=== PATIENT | female | born 1985 | race Caucasian/White ===

== ENCOUNTER 2017-04-19 22:08 | Emergency (ER) | payer MEDICAID, SELFPAY ==
[2017-04-19 22:08] VITALS: BP 126/79; PULSE 74; RESP 16; TEMP 36.9; O2SAT 100; BMI 33.8
--- NOTE | 2017-04-19 22:18 | CT_ITS ---
STUDY: CT ABDOMEN AND PELVIS WITHOUT CONTRAST REASON FOR EXAM: Female, 32 years old. Nausea vomiting and diarrhea. Right flank pain. RADIATION DOSAGE (If Supplied By Facility): CTDIvol = ( 10.84 ) mGy, DLP = ( 533.29 ) mGycm TECHNIQUE: Transaxial images were obtained from the dome of the diaphragm to the symphysis pubis without oral contrast, and without intravenous contrast. Sagittal and coronal images were reconstructed. Individualized dose optimization techniques were used for this CT. COMPARISON: None. FINDINGS: The visualized lung bases are unremarkable. The visualized portions of the heart are within normal limits. Normal liver. There are surgical clips in the gallbladder fossa consistent with a prior cholecystectomy. Normal spleen. Normal pancreas. Normal bilateral adrenal glands. Right kidney has a nonobstructing 3 mm mid renal stone. Normal left kidney. No hydronephrosis on either side. No renal masses. Evaluation of the GI tract is limited by absence of oral contrast. Cannot exclude stomach wall thickening. No dilated loops of bowel or evidence for obstruction. Cannot exclude segmental thickening of the barnes of the small or large bowel. Cannot exclude enteritis or colitis. Moderate diffuse fecal retention. Appendix within normal limits. Normal abdominal aorta. Normal inferior vena cava. Normal retroperitoneum. Normal urinary bladder. There is absence of the uterus consistent with a prior hysterectomy. Normal abdominal wall. Normal osseous structures. CT/Abdomen/Pelvis without Cont IMPRESSION: There is no acute abnormality seen. There is a small nonobstructing stone of the mid right kidney. Electronically Signed: Yasmany Mederos MD at 23:04 EST , Service support ,
[2017-04-19] MEDS: Ondansetron 4 MG/2 ML Vial IV (22:29)
[2017-04-19] MEDS: 0.9% Normal Saline 1,000 ML 1000 ML IV (22:29)
[2017-04-19] MEDS: Ketorolac 30 MG/ML Syringe IV (22:29)
[2017-04-19 22:36] LABS: Mucous, Urine 0 SEEN /hpf (<or=2+)
[2017-04-19 22:38] LABS: Absolute Lymphocyte Count 3.88 X10^3/ul (0.83-4.51); Absolute Neutrophil Count 7.7 X10^3/uL (2.0-7.7); Basophil# 0.03 X10^3/uL; Basophil% 0.2 % (0-1); Eosinophil# 0.43 X10^3/uL; Eosinophils% 3.4 % (0-5); Hematocrit 39.3 % (37-47); Hemoglobin 13.3 g/dl (12.0-15.0); Lymphocyte # 3.88 X10^3/ul (4.0); Lymphocyte % 30.9 % (19-41); Mean Corp Hgb Conc 33.8 g/gl (32-36); Mean Corpuscular Hgb 29.4 pg (27.0-32.0); Mean Corpuscular Volume 86.9 fL (81-99); Monocyte# 0.48 X10^3/uL; Monocyte% 3.8 % (0-10); Neutrophil # 7.72 X10^3/uL (2.7-7.7); Neutrophil % 61.5 % (47-70); Platelet Count 260 K/mm3 (150-450); RBC Distribution Width CV 13.2 % (11.6-14.6); RBC Distribution Width SD 42.1 fl (35.1-43.9); Red Blood Count 4.52 M/mm3 (4.2-5.4); White Blood Count 12.6 K/mm3 (4.4-11.0)
[2017-04-19 22:39] LABS: POSITIVE COUNT NO; POSITIVE DIFFERENTIAL NO; POSITIVE MORPHOLOGY NO
[2017-04-19 22:44] LABS: Color, Urine Straw (Yellow); Glucose, Dipstick Normal (Normal); Ketone-Dipstick Negative (Negative); Leukocyte Esterase-Dipstick Negative /ul (Negative); Nitrite-Dipstick Negative (Negative); Occult Blood-Urine 10 /ul (Negative); Protein-Dipstick Negative (Negative); Urine Bilirubin Dipstick Negative (Negative); Urine Clarity Sl. Cloudy (Clear); Urine Urobilinogen Normal (Normal)
[2017-04-19 22:50] LABS: Squamous Epithelial Cells - UA 0-5 SEEN /hpf (5-10)
[2017-04-19 22:52] LABS: Red Blood Cells-Urine 0-5 SEEN /hpf (0-5); White Blood Cells 0-5 SEEN /hpf (0-5)
[2017-04-19 22:53] LABS: Bacteria 1+ /hpf (None Seen)
[2017-04-19 22:55] LABS: AST(SGOT) 9 U/L (15-37); Alanine Aminotransfer ALT/SGPT 20 U/L (13-56); Albumin, Serum 3.6 g/dL (3.2-5.0); Alkaline Phosphatase 84 U/L (45-117); Anion Gap 6 (5-15); BUN 11 mg/dL (7-18); BUN/Creat Ratio 11.6 RATIO (10-20); Bilirubin, Direct 0.05 mg/dL (0.00-0.30); Calcium,Total 8.6 mg/dL (8.5-10.1); Chloride 112 mmol/L (98-107); Creatinine, Serum 0.95 mg/dL (0.55-1.02); EST Glomerular Filtration Rate 72 mL/min (>60); Est Glom Filt Rate - Afr Amer 87 mL/min (>60); Estimated Creatinine Clearance 59.93 ml/min; Globulin 3.9 g/dL (2.2-4.2); Glucose 97 mg/dL (74-106); Lipase 356 U/L (73-393); Potassium 3.3 mmol/L (3.5-5.1); Protein, Total 7.5 g/dL (6.4-8.2); Sodium Level 144 mmol/L (136-145)
--- NOTE | 2017-04-19 23:12 | ED.DCSUM_ITS ---
- ER Visit Summary Date of Service: 04/19/17 Chief Complaint: Flank pain History of Present Illness: The patient is a [address] weight. Salass that she has right flank pain right upper quadrant abdominal pain that began yesterday. Is gradually gotten worse. Is an aching constant pain with sharp stabbing episodes. Is 1010 worsening a 10 currently. Is worsened by movement or food. She relieved by remaining still. She reports is been nausea and vomited 7 times. No blood or emesis. She had 4 episodes of diarrhea today. No blood in her stools or black tarry stools. Patient denies sick contacts. Has not been camping out of the country. No possible bad food exposure. Does not drink well water. No recent antibiotic use. She reports this is similar to when she has had kidney stones. She has a history of a cholecystectomy. Physical Examination: Vitals: Stable. Afebrile. General: Well-nourished and well-developed. Head: Normocephalic atraumatic. Neck: Supple, no lymphadenopathy. No JVD. Nontender. Cardiovascular: Regular rate and rhythm. No murmurs. Respiratory: No respiratory distress. Clear to auscultation bilaterally. Abdominal: Soft, mild right upper quadrant tenderness to palpation, nondistended , normal bowel sounds. No guarding, rebound, or peritoneal signs. Back: Moderate right CVA tenderness. Extremities: Nontender, no edema. Skin: Normal color, no rash. Neurologic: Alert and oriented ?3. Cranial nerves II through XII are intact. Normal strength and sensation. Psych: Normal affect. Test Results: CBC is marked for white count of 12.6. Chem-7 is marked potassium 3.3 and chloride 112. LFTs marked for an AST of 9. Her lipase is normal. Her urinalysis is negative. CT flank shows no acute disease. She does have a small right nonobstructive renal stone. Emergency Department Course and Treatment: Patient is treated with Toradol and Zofran IV. She is resting comfortably. Treatment Plan: The patient will be discharged with naproxen and Zofran. Instructed to follow-up her primary care physician in 3-5 days if not improving. Return to the emergency department for any worsening symptoms. Disposition: To home in improved and stable condition. Impression: 1. Right flank pain, uncertain cause. This note was generated with [employer] dictation software. It may contain incorrect words, spelling, and punctuation that were not noted in review of the chart prior to signing ED Disposition - Plan for ED Patient: Disposition: Home or Assisted Living Chief Complaint: Nausea/Vomiting/Diarrhea Instructions: ED Flank Pain Uncertain Cause Prescriptions: Ondansetron [Zofran Odt] 4 mg PO Q8H PRN PRN #10 tablet PRN Reason: Nausea Naproxen [Naprosyn] 500 mg PO BID PRN #20 tablet Referrals: Wally Hunter [Primary Care Provider] - 3-5 Days if not improving
[2017-04-19] MEDS: Ondansetron ODT 4 MG Tablet PO (23:24)
[2017-04-19 23:28] VITALS: RESP 16
== END 2017-04-19 23:28 | disposition home or self-care (01) ==
PROVIDERS: Emergency Provider Emergency Medicine; Family Provider Physician Assistant; PCP Physician Assistant
DX: R10.9 Unspecified abdominal pain (principal); J45.909 Unspecified asthma, uncomplicated; N32.81 Overactive bladder; Z87.442 Personal history of urinary calculi; Z79.51 Long term (current) use of inhaled steroids; Z79.899 Other long term (current) drug therapy
CPT/HCPCS: 74176; 80048; 80076; 81001; 83690; 85025; 96361; 96374; 96375; 99282; J7030; A4216; J2405

== ENCOUNTER 2017-10-05 14:27 | Emergency (ER) | payer MEDICAID, SELFPAY ==
[2017-10-05 14:28] VITALS: BP 122/82; PULSE 91; RESP 16; TEMP 37.2; O2SAT 98; BMI 35.2
--- NOTE | 2017-10-05 15:32 | ED.VISSUMM ---
- ER Visit Summary Date of Service: 10/05/17 Chief Complaint: Rash History of Present Illness: The patient is a [address] Segal. She reports that she has a rash in the back of her neck that she was yesterday. She describes a sharp, aching pain that is 10 out of 10 at worst and 7 out of 10, currently after ibuprofen. The pain was worsened by nothing. She denies any recent trauma. No fever, chills, nausea, vomiting, or other constitutional symptoms. Physical Examination: Vitals: Stable. Afebrile. General: Well-nourished and well-developed. Head: Normocephalic atraumatic. Neck: Supple, no lymphadenopathy. No JVD. Nontender. Cardiovascular: Regular rate and rhythm. No murmurs. Respiratory: No respiratory distress. Clear to auscultation bilaterally. Abdominal: Soft, nontender, nondistended, normal bowel sounds. No guarding, rebound, or peritoneal signs. Back: Nontender. Extremities: Nontender, no edema. Skin: At the base of her skull where it meets her neck just in the hairline there are 2 0.5 cm superficial ulcers with minimal surrounding erythema. There is no induration or fluctuance. Neurologic: Alert and oriented ?3. Cranial nerves II through XII are intact. Normal strength and sensation. Psych: Normal affect. Emergency Department Course and Treatment: Had a prolonged discussion with the patient about treatment for this. At this time I do not feel that an incision and drainage would be helpful. She is given dose of doxycycline p.o. Treatment Plan: Patient will be discharged with Bactroban ointment and doxycycline. Instructed to follow-up Dr. Segal in 2 days for repeat exam. She does understand that if this is not improving with conservative measures that it may require an incision and drainage. Return to the emergency department for any worsening symptoms. Disposition: To home in improved and stable condition. Impression: 1. Superficial ulcer to neck. This note was generated with [employer] dictation software. It may contain incorrect words, spelling, and punctuation that were not noted in review of the chart prior to signing ED Disposition - Plan for ED Patient: Disposition: Home or Assisted Living Chief Complaint: Abscess Instructions: ED Staph Infec Abx Tx Only Prescriptions: Doxycycline Monohydrate 100 mg PO BID #20 capsule Mupirocin [Bactroban] 1 applic TOPICAL TID #1 tube Referrals: Aparna Segal MD [Primary Care Provider] - 2 Days for wound check
[2017-10-05] MEDS: Doxycycline 100 MG CAPSULE PO (15:35)
[2017-10-05 15:37] VITALS: PULSE 76; RESP 17; O2SAT 97
== END 2017-10-05 15:37 | disposition home or self-care (01) ==
LOC: ED 15:27
PROVIDERS: Emergency Provider Emergency Medicine; Family Provider Internal Medicine; PCP Internal Medicine
DX: L98.499 Non-pressure chronic ulcer of skin of other sites with unspecified severity (principal); J45.909 Unspecified asthma, uncomplicated; Z79.51 Long term (current) use of inhaled steroids; Z79.899 Other long term (current) drug therapy
CPT/HCPCS: 99283

== ENCOUNTER 2017-12-14 10:12 | Emergency (ER) | payer MEDICAID, SELFPAY ==
[2017-12-14 10:13] VITALS: BP 124/91; PULSE 85; RESP 16; TEMP 36.4; O2SAT 96; BMI 34.0
[2017-12-14] MEDS: 0.9% Normal Saline 1,000 ML 1000 ML IV (10:30)
[2017-12-14] MEDS: Ketorolac 30 MG/ML Syringe IV (10:30)
[2017-12-14] MEDS: Ondansetron 4 MG/2 ML Vial IV (10:30)
--- NOTE | 2017-12-14 10:38 | ED.VISSUMM ---
- ER Visit Summary Date of Service: 12/14/17 Chief Complaint: Vomiting and diarrhea History of Present Illness: The patient is a [address] Segal. She reports that she began having diarrhea last evening. She had 7 episodes. No blood in her stools or black tarry stools. She reports has nausea and vomiting that began this morning. She is on approximately 10 times. No blood in her emesis. Complains of sharp, cramping lower abdominal pain that is 8 out of 10 in severity. It is worsened by nothing and relieved by nothing. Patient denies sick contacts. Has not been camping out of the country. No possible bad food exposure. Does not drink well water. No recent antibiotic use. Physical Examination: Vitals: Stable. Afebrile. General: Well-nourished and well-developed. Head: Normocephalic atraumatic. Neck: Supple, no lymphadenopathy. No JVD. Nontender. Cardiovascular: Regular rate and rhythm. No murmurs. Respiratory: No respiratory distress. Clear to auscultation bilaterally. Abdominal: Soft, mild diffuse lower abdominal tenderness to palpation, nondistended, normal bowel sounds. No guarding, rebound, or peritoneal signs. Back: Nontender. Extremities: Nontender, no edema. Skin: Normal color, no rash. Neurologic: Alert and oriented ?3. Cranial nerves II through XII are intact. Normal strength and sensation. Psych: Normal affect. Emergency Department Course and Treatment: Patient had an IV placed. She was given a liter of normal saline. She was given Toradol and Zofran IV. She is resting comfortably. She has had no vomiting or diarrhea while here. Treatment Plan: Patient will be discharged with Zofran. Instructed to follow-up with her primary care physician in 1-2 days if not improving. Return to the emergency department for any worsening symptoms. Disposition: To home in improved and stable condition. Impression: 1. Vomiting/diarrhea. This note was generated with [employer] dictation software. It may contain incorrect words, spelling, and punctuation that were not noted in review of the chart prior to signing ED Disposition - Plan for ED Patient: Chief Complaint: Nausea/Vomiting/Diarrhea Instructions: ED Vomiting Diarrhea Nonspecific Ad Prescriptions: Ondansetron [Zofran Odt] 4 mg PO Q8H PRN PRN #10 tablet PRN Reason: Nausea Referrals: Aparna Segal MD [Primary Care Provider] - 1-2 Days if not improving
--- NOTE | 2017-12-14 10:41 | ED.DCSUM_ITS ---
- ER Visit Summary Date of Service: 12/14/17 Chief Complaint: Vomiting and diarrhea History of Present Illness: The patient is a [address] Segal. She reports that she began having diarrhea last evening. She had 7 episodes. No blood in her stools or black tarry stools. She reports has nausea and vomiting that began this morning. She is on approximately 10 times. No blood in her emesis. Complains of sharp, cramping lower abdominal pain that is 8 out of 10 in severity. It is worsened by nothing and relieved by nothing. Patient denies sick contacts. Has not been camping out of the country. No possible bad food exposure. Does not drink well water. No recent antibiotic use. Physical Examination: Vitals: Stable. Afebrile. General: Well-nourished and well-developed. Head: Normocephalic atraumatic. Neck: Supple, no lymphadenopathy. No JVD. Nontender. Cardiovascular: Regular rate and rhythm. No murmurs. Respiratory: No respiratory distress. Clear to auscultation bilaterally. Abdominal: Soft, mild diffuse lower abdominal tenderness to palpation, nondisten ded, normal bowel sounds. No guarding, rebound, or peritoneal signs. Back: Nontender. Extremities: Nontender, no edema. Skin: Normal color, no rash. Neurologic: Alert and oriented ?3. Cranial nerves II through XII are intact. Normal strength and sensation. Psych: Normal affect. Emergency Department Course and Treatment: Patient had an IV placed. She was given a liter of normal saline. She was given Toradol and Zofran IV. She is resting comfortably. She has had no vomiting or diarrhea while here. Treatment Plan: Patient will be discharged with Zofran. Instructed to follow-up with her primary care physician in 1-2 days if not improving. Return to the emergency department for any worsening symptoms. Disposition: To home in improved and stable condition. Impression: 1. Vomiting/diarrhea. This note was generated with [employer] dictation software. It may contain incorrect words, spelling, and punctuation that were not noted in review of the chart prior to signing ED Disposition - Plan for ED Patient: Chief Complaint: Nausea/Vomiting/Diarrhea Instructions: ED Vomiting Diarrhea Nonspecific Ad Prescriptions: Ondansetron [Zofran Odt] 4 mg PO Q8H PRN PRN #10 tablet PRN Reason: Nausea Referrals: Aparna Segal MD [Primary Care Provider] - 1-2 Days if not improving
== END 2017-12-14 12:39 | disposition home or self-care (01) ==
PROVIDERS: Emergency Provider Emergency Medicine; Family Provider Internal Medicine; PCP Internal Medicine
DX: R11.2 Nausea with vomiting, unspecified (principal); R19.7 Diarrhea, unspecified; J45.909 Unspecified asthma, uncomplicated; Z79.51 Long term (current) use of inhaled steroids; Z79.899 Other long term (current) drug therapy
CPT/HCPCS: 96361; 96374; 96375; 99283; J7030; J2405

== ENCOUNTER 2020-05-10 11:44 | Emergency (ER) | payer MEDICAID, SELFPAY ==
[2020-05-10 11:44] VITALS: BP 138/79; PULSE 95; RESP 16; TEMP 36.3; O2SAT 97; BMI 33.3
--- NOTE | 2020-05-10 12:11 | CT_ITS ---
STUDY: CT ABDOMEN AND PELVIS WITHOUT CONTRAST REASON FOR EXAM: Female, 35 years old. Kidney Stone RADIATION DOSAGE (If Supplied By Facility): CTDIvol = ( 9.09 ) mGy, DLP = ( 444.95 ) mGycm TECHNIQUE: Transaxial images were obtained from the dome of the diaphragm to the symphysis pubis without oral contrast, and without intravenous contrast. Sagittal and coronal images were reconstructed. Individualized dose optimization techniques were used for this CT. COMPARISON: 04/19/2017 FINDINGS: The visualized lung bases are unremarkable. Normal liver. There are surgical clips in the gallbladder fossa consistent with a prior cholecystectomy. Normal spleen. Normal pancreas. Normal bilateral adrenal glands. There is a 4 mm calcification at the midpole of the right kidney. No hydronephrosis. Unremarkable left kidney. Normal visualized stomach. Normal small intestine. Normal colon. The appendix is visualized and appears normal. Normal abdominal aorta. Normal urinary bladder. There is now 4 x 5 mm lobulated mass at the right pelvis (axial image 135 series 2). The uterus is not visualized. There is a surgical clips at the expected left adnexal region. There are diffuse degenerative changes of the visualized lumbar spine. CT/Abdomen/Pelvis without Cont IMPRESSION: 4 mm nonobstructing right kidney stone. New 5 cm right pelvic mass. Further evaluation with sonography is recommended. Electronically Signed: Roberto Black MD at 13:14 EDT Tel , Service support ,
--- NOTE | 2020-05-10 12:12 | ED.VIS.GEN ---
History of Present Illness Chief Complaint: Abd Pain Informant: Patient Narrative: 35-year-old female states that she has been vomiting since Tuesday. She states she vomits every day. She states that she went to an outside hospital on Tuesday and always they did was give me something for nausea and a half a bag of fluids. 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 She tells me that now she developed pain in her right side. She states it feels like a kidney stone that she had several months ago. No diarrhea. No fevers. She tells me that nothing that she eats or drinks stays down but when I question her further and mention that it surprises me that her vital signs are normal she does state that fluids are staying down. Past Medical History - Allergies and Home Meds Allergies/Adverse Reactions: Allergies adhesive tape Allergy (Verified 05/10/20 11:46) Rash clarithromycin [From Biaxin] Allergy (Verified 05/10/20 11:46) Rash Penicillins Allergy (Verified 05/10/20 11:46) Rash Poultry Adverse Reaction (Verified 05/10/20 11:46) Diarrhea Primary Care Physician: Kriss Luna MD [STAFF PHYSICIAN] - 5-7 Days () Past Medical History: - - Hyperlipidemia asthma gastritis esophagitis kidney stones Surgical History: noncontributory Smoking Status: Current every day smoker Alcohol: None Drugs: None Review of Systems General: Denies: Chills, Fever, Sweats Eyes: Denies: Visual changes - bilaterally, Diplopia ENT: Denies: Rhinorrhea, Sore throat Cardiovascular: Denies: Chest pain, Palpitations Respiratory: Denies: Dyspnea, Cough, Dyspnea on exertion Gastrointestinal: Reports: Abdominal pain, Nausea, Vomiting. Denies: Diarrhea, Melena, Hematochezia Genitourinary: Denies: Dysuria, Hematuria, Frequency Musculoskeletal: Denies: Back pain, Extremity Pain Skin: Denies: Rash, Wounds Neurological: Denies: Headache, Weakness, Numbness Physical Exam Vital Signs/Narrative: Vital Signs Temp Pulse Resp BP Pulse Ox 05/10/20 11:44 97.4 F L 95 16 138/79 H 97 Inital Vital Signs reviewed: Yes General: Well nourished, Well developed, No Acute Distress Head: Normocephalic, Atraumatic Eyes: Perrl, EOMI ENT: Moist mucous membranes, No rhinorrhea Neck: Supple, Nontender Cardiovascular: Regular rate, Regular rhythm, No murmurs Respiratory: No distress, CTA bilaterally, Chest nontender Abdomen: Soft, Nontender, Nondistended, Normal bowel sounds Back: Nontender, Normal Inspection Extremities: Nontender, No edema Skin: Normal color, No rash Neurological: Alert, Oriented x3, Cranial nerves II-XII grossly intact, Normal Strength, Normal Sensation Psychological: Normal affect, Normal Mood Diagnostic/Tx/Re-eval Clinical Impression(s) from Imaging Studies Abdomen/Pelvis CT 05/10/20 12:11 IMPRESSION: 4 mm nonobstructing right kidney stone. New 5 cm right pelvic mass. Further evaluation with sonography is recommended. Electronically Signed: Roberto Black MD at 13:14 EDT Tel , Service support , Pelvis Ultrasound 05/10/20 13:21 IMPRESSION: Right ovarian hemorrhagic cyst. No evidence of ovarian torsion. ACR White Paper guidelines (Sneed, et. al. Radiology 2010; 256(3):943-954) suggest no follow-up is necessary. Electronically Signed: Onur Pal MD ([place]) at 14:49 EDT , Service support , Transvaginal US 05/10/20 13:21 IMPRESSION: Right ovarian hemorrhagic cyst. No evidence of ovarian torsion. ACR White Paper guidelines (Sneed, et. al. Radiology 2010; 256(3):943-954) suggest no follow-up is necessary. Electronically Signed: Onur Pal MD ([place]) at 14:49 EDT , Service support , Laboratory Last Values WBC 11.8 K/mm3 (4.4-11.0) H 05/10/20 12:25 RBC 4.71 M/mm3 (4.2-5.4) 05/10/20 12:25 Hgb 14.3 g/dL (12.0-15.0) 05/10/20 12:25 Hct 41.4 % (37-47) 05/10/20 12:25 MCV 87.9 fL (81-99) 05/10/20 12:25 MCH 30.4 pg (27.0-32.0) 05/10/20 12:25 MCHC 34.5 g/dL (32-36) 05/10/20 12:25 RDW Std Deviation 39.6 fl (35.1-43.9) 05/10/20 12:25 RDW Coeff of Jared 12.2 % (11.6-14.6) 05/10/20 12:25 Plt Count 272 K/mm3 (150-450) 05/10/20 12:25 MPV 10.7 fl (6.2-12.0) 05/10/20 12:25 Immature Gran % (Auto) 0.400 % (0.0-0.9) 05/10/20 12:25 Neut % (Auto) 68.0 % (47-70) 05/10/20 12:25 Lymph % (Auto) 25.1 % (19-41) 05/10/20 12:25 Haakon % (Auto) 3.4 % (0-10) 05/10/20 12:25 Eos % (Auto) 2.5 % (0-5) 05/10/20 12:25 Baso % (Auto) 0.6 % (0-1) 05/10/20 12:25 Absolute Neuts (auto) 8.0 X10^3/uL (2.0-7.7) H 05/10/20 12:25 Absolute Lymphs (auto) 2.96 X10^3/uL (0.83-4.51) 05/10/20 12:25 Nucleated RBC % 0 % (0-5) 05/10/20 12:25 Sodium 141 mmol/L (136-145) 05/10/20 12:25 Potassium 3.5 mmol/L (3.5-5.1) 05/10/20 12:25 Chloride 109 mmol/L (98-107) H 05/10/20 12:25 Carbon Dioxide 26.0 mmol/L (21.0-32.0) 05/10/20 12:25 Anion Gap 6 (5-15) 05/10/20 12:25 BUN 10 mg/dL (7-18) 05/10/20 12:25 Creatinine 1.00 mg/dL (0.55-1.02) 05/10/20 12:25 Estim Creat Clear Calc 55.33 ml/min 05/10/20 12:25 Est GFR (MDRD) Af Amer 80 mL/min (>60) 05/10/20 12:25 Est GFR (MDRD) Non-Af 66 mL/min (>60) 05/10/20 12:25 BUN/Creatinine Ratio 10.0 RATIO (10-20) 05/10/20 12:25 Glucose 94 mg/dL (74-106) 05/10/20 12:25 Calcium 8.9 mg/dL (8.5-10.1) 05/10/20 12:25 Urine Color Straw (Yellow) 05/10/20 12:00 Urine Clarity Clear (Clear) 05/10/20 12:00 Urine pH 7.0 (5.0 - 8.0) 05/10/20 12:00 Ur Specific [place] 1.010 (1.002-1.030) 05/10/20 12:00 Urine Protein Negative mg/dl (Negative) 05/10/20 12:00 Urine Glucose (UA) Normal mg/dl (Normal) 05/10/20 12:00 Urine Ketones Negative mg/dl (Negative) 05/10/20 12:00 Urine Occult Blood Negative /ul (Negative) 05/10/20 12:00 Urine Nitrite Negative (Negative) 05/10/20 12:00 Urine Bilirubin Negative mg/dL (Negative) 05/10/20 12:00 Urine Urobilinogen Normal mg/dl (Normal) 05/10/20 12:00 Ur Leukocyte Esterase Negative /ul (Negative) 05/10/20 12:00 Urine RBC 0 SEEN /hpf (0-5) 05/10/20 12:00 Urine WBC 0 SEEN /hpf (0-5) 05/10/20 12:00 Ur Squamous Epith Cells 0-5 SEEN /hpf (5-10) 05/10/20 12:00 Urine Bacteria 0 SEEN /hpf (None Seen) 05/10/20 12:00 Urine Mucus 0 SEEN /hpf (<or=2+) 05/10/20 12:00 Urine Test Negative Negative 05/10/20 12:00 - Medical Decision Making Basic blood work was negative. Urinalysis shows no hematuria or infection. CT the abdomen pelvis demonstrates a nonobstructing 4 mm stone in the right kidney. There is a new 5 cm right adnexal mass. Because of the new mass in the right lower quadrant pain a pelvic ultrasound was obtained. This demonstrated a right ovarian hemorrhagic cyst. No evidence of torsion. Cyst measures 3.9 x 4.2 x 4.6 cm. This point patient will be discharged home with a prescription for [place]. She has Zofran and Phenergan at home. Follow-up with [facility] ED Disposition - Plan for ED Patient: Disposition: Home or Assisted Living Diagnosis: Ovarian cyst, Vomiting, Abdominal pain Instructions: ED Ovarian Cyst, ED Vomiting (Adult) Prescriptions: Hydrocodone Bitart/Apap 5-325 [[place] 5MG-325MG] 1 tablet PO Q6H PRN PRN 3 Days #12 tab PRN Reason: Pain Prescription Printed Referrals: Kriss Luna MD [STAFF PHYSICIAN] - 5-7 Days ()
[2020-05-10] MEDS: Ondansetron 4 MG/2 ML Vial IV (12:28)
[2020-05-10] MEDS: 0.9% Normal Saline 1,000 ML 250 ML IV (12:28)
[2020-05-10 12:34] LABS: Absolute Lymphocyte Count 2.96 X10^3/uL (0.83-4.51); Basophil# 0.07 X10^3/uL; Basophil% 0.6 % (0-1); Eosinophils% 2.5 % (0-5); Hematocrit 41.4 % (37-47); Hemoglobin 14.3 g/dL (12.0-15.0); Lymphocyte # 2.96 X10^3/ul (4.0); Lymphocyte % 25.1 % (19-41); Mean Corp Hgb Conc 34.5 g/dL (32-36); Mean Corpuscular Hgb 30.4 pg (27.0-32.0); Mean Corpuscular Volume 87.9 fL (81-99); Mean Platelet Vol. 10.7 fl (6.2-12.0); Monocyte% 3.4 % (0-10); NRBC Flagged by Analyzer 0 % (0-5); Neutrophil # 8.02 X10^3/uL (2.7-7.7); Platelet Count 272 K/mm3 (150-450); RBC Distribution Width CV 12.2 % (11.6-14.6); RBC Distribution Width SD 39.6 fl (35.1-43.9); Red Blood Count 4.71 M/mm3 (4.2-5.4); White Blood Count 11.8 K/mm3 (4.4-11.0)
[2020-05-10 12:34] LABS: Bacteria 0 SEEN /hpf (None Seen); Mucous, Urine 0 SEEN /hpf (<or=2+); Red Blood Cells-Urine 0 SEEN /hpf (0-5); White Blood Cells 0 SEEN /hpf (0-5)
[2020-05-10 12:39] LABS: Color, Urine Straw (Yellow); Glucose, Dipstick Normal (Normal); Ketone-Dipstick Negative (Negative); Leukocyte Esterase-Dipstick Negative /ul (Negative); Nitrite-Dipstick Negative (Negative); Occult Blood-Urine Negative /ul (Negative); Protein-Dipstick Negative (Negative); Urine Bilirubin Dipstick Negative (Negative); Urine Clarity Clear (Clear); Urine Urobilinogen Normal (Normal)
[2020-05-10 12:41] LABS: Squamous Epithelial Cells - UA 0-5 SEEN /hpf (5-10)
[2020-05-10 12:42] LABS: Internal QC Validated? YES +Cl - CLEAR BKGD; Pregnancy, Urine Negative Negative
[2020-05-10 12:47] LABS: Anion Gap 6 (5-15); BUN 10 mg/dL (7-18); Calcium,Total 8.9 mg/dL (8.5-10.1); Chloride 109 mmol/L (98-107); EST Glomerular Filtration Rate 66 mL/min (>60); Est Glom Filt Rate - Afr Amer 80 mL/min (>60); Estimated Creatinine Clearance 55.33 ml/min; Glucose 94 mg/dL (74-106); Potassium 3.5 mmol/L (3.5-5.1); Sodium Level 141 mmol/L (136-145)
--- NOTE | 2020-05-10 13:21 | US_ITS ---
EXAM: US PELVIS TRANSABDOMINAL AND TRANSVAGINAL, COMPLETE CLINICAL INDICATION: Pain -- [place] Seen On CT -- -- RLQ PAIN TECHNIQUE: Transabdominal and transvaginal pelvic ultrasound was performed with grayscale and color Doppler imaging. Transvaginal imaging was used for better evaluation of the endometrium and adnexa. This report was created using [employer] report generation technology. COMPARISON: Today FINDINGS: UTERUS/CERVIX: Hysterectomy. RIGHT OVARY: Hypoechoic, septated cyst of the right ovary measures 3.9 x 4.2 x 4.6 cm. Right ovary measures 5.4 x 4.7 x 4.6 cm. Additional simple cysts of the right ovary measures up to 2.3 cm, although could represent an adjacent septation of the hemorrhagic cyst. Blood flow is present in the right ovary. LEFT OVARY: Left ovary measures 2.6 x 2.4 x 1.3 cm. Blood flow is present in the left ovary. FREE FLUID: None. BLADDER: Unremarkable as visualized. Wall is normal thickness for degree of distention. US/Transvaginal Non- IMPRESSION: Right ovarian hemorrhagic cyst. No evidence of ovarian torsion. ACR White Paper guidelines (Sneed, et. al. Radiology 2010; 256(3):943-954) suggest no follow-up is necessary. Electronically Signed: Onur Pal MD ([place]) at 14:49 EDT , Service support ,
--- NOTE | 2020-05-10 13:21 | US_ITS ---
EXAM: US PELVIS TRANSABDOMINAL AND TRANSVAGINAL, COMPLETE CLINICAL INDICATION: Pain -- [place] Seen On CT -- -- RLQ PAIN TECHNIQUE: Transabdominal and transvaginal pelvic ultrasound was performed with grayscale and color Doppler imaging. Transvaginal imaging was used for better evaluation of the endometrium and adnexa. This report was created using [employer] report generation technology. COMPARISON: Today FINDINGS: UTERUS/CERVIX: Hysterectomy. RIGHT OVARY: Hypoechoic, septated cyst of the right ovary measures 3.9 x 4.2 x 4.6 cm. Right ovary measures 5.4 x 4.7 x 4.6 cm. Additional simple cysts of the right ovary measures up to 2.3 cm, although could represent an adjacent septation of the hemorrhagic cyst. Blood flow is present in the right ovary. LEFT OVARY: Left ovary measures 2.6 x 2.4 x 1.3 cm. Blood flow is present in the left ovary. FREE FLUID: None. BLADDER: Unremarkable as visualized. Wall is normal thickness for degree of distention. US/Pelvic (Non ) IMPRESSION: Right ovarian hemorrhagic cyst. No evidence of ovarian torsion. ACR White Paper guidelines (Sneed, et. al. Radiology 2010; 256(3):943-954) suggest no follow-up is necessary. Electronically Signed: Onur Pal MD ([place]) at 14:49 EDT , Service support ,
[2020-05-10 15:15] VITALS: BP 131/87; PULSE 89; RESP 16; O2SAT 99
== END 2020-05-10 15:16 | disposition home or self-care (01) ==
PROVIDERS: Emergency Provider Emergency Medicine; PCP Internal Medicine
DX: N83.201 Unspecified ovarian cyst, right side (principal); R11.10 Vomiting, unspecified; R10.9 Unspecified abdominal pain; E78.5 Hyperlipidemia, unspecified; J45.909 Unspecified asthma, uncomplicated; F17.200 Nicotine dependence, unspecified, uncomplicated; Z87.442 Personal history of urinary calculi
CPT/HCPCS: 74176; 76830; 76856; 80048; 81001; 81025; 85025; 96361; 96374; 99282; J7030; J2405

== ENCOUNTER 2020-06-11 07:56 | Emergency (ER) | payer MEDICAID, SELFPAY ==
[2020-06-11 07:57] VITALS: BP 122/69; PULSE 101; RESP 16; TEMP 36.6; O2SAT 100; BMI 35.5
--- NOTE | 2020-06-11 08:08 | ED.DCSUM_ITS ---
History of Present Illness Chief Complaint: Abscess Informant: Patient Onset: Yesterday Current Severity: Severe Maximum Severity: Severe Narrative: Patient presents secondary to labial abscess. She states she noted a lump on the right labia yesterday. Area is very painful and she was unable to sleep last night. She denies history of similar. No drainage from the area. She states she tried warm baths without improvement. - Past Medical History (1) Asthma Status: Chronic Past Medical History - Allergies and Home Meds Allergies/Adverse Reactions: Allergies adhesive tape Allergy (Verified 06/11/20 07:58) Rash clarithromycin [From Biaxin] Allergy (Verified 06/11/20 07:58) Rash Penicillins Allergy (Verified 06/11/20 07:58) Rash Poultry Adverse Reaction (Verified 06/11/20 07:58) Diarrhea Primary Care Physician: Aparna Segal MD [Primary Care Provider] - Surgical History: noncontributory Smoking Status: Never smoker Review of Systems General: Denies: Chills, Fever Eyes: Denies: Visual changes - bilaterally ENT: Denies: Bilateral ear pain Cardiovascular: Denies: Chest pain Respiratory: Denies: Dyspnea, Cough Gastrointestinal: Denies: Abdominal pain Genitourinary: Reports: - - Right labial abscess Musculoskeletal: Denies: Extremity Pain Skin: Reports: Abscess Neurological: Denies: Weakness, Parasthesia Hematologic: Denies: Easy bruising, Easy bleeding Allergy: Denies: Uticaria Physical Exam Vital Signs/Narrative: Vital Signs Temp Pulse Resp BP Pulse Ox 06/11/20 07:57 97.8 F 101 H 16 122/69 H 100 Inital Vital Signs reviewed: Yes General: Well nourished, Well developed Head: Normocephalic Neck: Supple Cardiovascular: Regular rate, Regular rhythm Respiratory: No distress, CTA bilaterally Abdomen: Soft, Nontender : - - 1 cm diameter abscess on the medial surface of the labia majora on the right. No evidence of cellulitis. No spontaneous drainage. Skin: Normal color Neurological: Alert, Oriented x3 Psychological: Normal affect Diagnostic/Tx/Re-eval - Medical Decision Making Patient was consented for I&D. Lidocaine was placed topically over the area. This was followed by 1 cc injection of 1% lidocaine. Patient would not allow me to further open the wound but I was able to get pus draining from the stab made for the lidocaine injection. Abscess reduced approximate one third its initial size. Wound was cleansed. Patient be treated with doxycycline as well as [place] for pain. She will follow-up with her DIRECTOR SYSTEMS. ED Disposition - Plan for ED Patient: Disposition: Home or Assisted Living Diagnosis: Labial abscess Instructions: ED Abscess Incision And Drainage Prescriptions: Doxycycline 100 mg PO BID #20 capsule Transmission Status: Pending to [id number] Hydrocodone Bitart/Apap 5-325 [[place] 5MG-325MG] 1 tablet PO Q6H PRN PRN 3 Days #10 tablet PRN Reason: Pain Transmission Status: Received by [id number] Referrals: Aparna Segal MD [Primary Care Provider] - Shama Middleton NP, VERIFIER-C [NON-STAFF] - 3-5 Days
[2020-06-11] MEDS: Lidocaine 1% (20 ml mdv) 20 ML Vial INFILT (08:25)
[2020-06-11] MEDS: Lidocaine 4% 50 ML Bottle TOPICAL (08:26)
[2020-06-11 09:36] VITALS: PULSE 80; RESP 16; O2SAT 98
== END 2020-06-11 09:36 | disposition home or self-care (01) ==
PROVIDERS: Emergency Provider Emergency Medicine; PCP Internal Medicine
DX: N76.4 Abscess of vulva (principal); J45.909 Unspecified asthma, uncomplicated
CPT/HCPCS: 10060; 99282

== ENCOUNTER 2021-03-02 11:30 | Outpatient (RCR) | payer MEDICAID, SELFPAY ==
--- NOTE | 2020-11-19 13:19 | HP.OTEVAL_ITS ---
Patient's Visit Information LONI MCGARRY is a 35 year old F, referred to Occupational Therapy by Dr. Aparna Segal MD, with a diagnosis of left wrist pain. Date of Evaluation: 11/19/20 Occupational Therapist: Samina Rothman, ADIA/[place], CHT - Subjective This 35 year old female was seen for OT eval with dx of left wrist pain- pt st ates her wrist has been hurting for over a year- pt states she did get a cortisone shot about a year ago this took her pain away for only two day. pt states she was given wrist brace on Oct.07 to wear. 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 pt states pain is worse with wt. bearing as pushing herself up from bathtub or pushing off table. pt states work she has constant pain. pt works 5 days a week for 8 hours. pt states she does ice 2 x day for 15-20 min and also uses heat 2 x a day but this does not help with the pain. - Pain left wrist 8 Pain Intensity Range: 2, 8 - ROM Forearm: pt demo full ROM but pain in left with sup/pron at ulnar side of wrist Wrist: right 70/60 left 40/30 - Strength Automatic Pattern Edger: right 55# left 15# Lateral Pinch: right 16# left 4# Tripod Pinch: right 14# left 4# Strength Comments: pain with resistive testing - Sensation Thumb: right 2.83 left 2.83 Index: right 2.83 left 2.83 Middle: right 2.83 left 2.83 Ring: right 2.83 left 2.83 Little: right 2.83 left 2.83 - Quick DASH-Disab of Arm,Shoulder& Hand Quick DASH Score: 33.3325 - Goals Goal:: pt will demo a increase in left wireless consultant to 45# or greater to increase pts ind. with ADLs and IADLs by d.c Goal:: pt will demo a increase in left wrist ROM by 20* or greater to increase pt ind, with ADls and IADLs by d/c Goal:: pt will report no pain greater than 2/10 with use of ADLs and IADLs by d,c Goal:: pt will demo understanding of joint protection to prevent stress on tendons by end of 3rd session. - Rehabilitation General Assessment: positive compression test for TFCC involvement -. pt demo pain with ROM and resistive testing. pt is limited with ADLS and IADls due to pain. Pt would benefit from skilled OT services 2-3xweek for 4 weeks to return pt to PLOF. Pt agrees to POC Rehabilitation Potential: Good - Anticipated Interventions A/AAROM/PROM, Strengthening, Modalities, Orthoses, Joint Protection/Energy Conservation, Ergonomic Education, Education re assistive Equipment, Education re Diagnosis, Home Program - Visit Plan Frequency: 2-3x /Week Duration: 4 Weeks TEXT: Thank you for the opportunity to evaluate your patient. For Medicare and Medicare HMO plans, please review the plan of care and approve it. It will need to be FAXED BACK to us at [phone] for Medicare purposes. Please let me know if there are questions or concerns regarding this plan of care. Physician Signature: Date:
--- NOTE | 2021-03-02 12:12 | OTREVAL_ITS ---
Dr. Aparna Segal MD, It has been my pleasure to treat LONI MCGARRY over the last 2 visits for left wrist pain. Please see the progress note below for an update on the occupational therapy plan of care! Subjective: pt states due to family illness she has not been able to attend therapy sessions. pt states no change in her symptoms. pt states pain in around her wrist. 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 left forearm pronation/supination WNL. left oil and gas lease pumper strength 18#. left lateral pinch 2#. left tripod pinch 2#. pt has not been able to attend therapy sessions due to family illness. pt states current pain in 8/10 heat or ice do not help-. pt states she does have a wrist brace and this helps but this limits her work tasks. pt would benefit from skilled OT services 2-3x week for 3-4 weeks. Plan Frequency: 2-3x /Week Duration: 2-4 Weeks Plan: wrist stabilization exercise /brace, work ergo Goals - Goals Patient Goals: Decrease Pain, Use Hand/Wrist/Arm Normally Again Goal:: pt will demo a increase in left oil and gas lease pumper to 45# or greater to increase pts ind. with ADLs and IADLs by d.c Goal:: pt will demo a increase in left wrist ROM by 20* or greater to increase pt ind, with ADls and IADLs by d/c Goal:: pt will report no pain greater than 2/10 with use of ADLs and IADLs by d,c Goal:: pt will demo understanding of joint protection to prevent stress on tendons by end of 3rd session. Anticipated Interventions Anticipated Interventions: A/AAROM/PROM, Strengthening, Modalities, Orthoses, Joint Protection/Energy Conservation, Ergonomic Education, Education re assistive Equipment, Education re Diagnosis, Home Program Please do not hesitate to contact me at [phone] by phone or if you have questions or concerns regarding this new plan of care! Sincerely, Samina Rothman, OTR/L, CHT
== END 2021-03-02 19:00 | disposition home or self-care (01) ==
LOC: OT 11:30
PROVIDERS: PCP Internal Medicine; Referring Provider Internal Medicine; Visit Provider Internal Medicine
DX: M25.532 Pain in left wrist (principal)
CPT/HCPCS: 97035; 97110; 97166; 97530

== ENCOUNTER 2021-10-12 07:13 | Day surgery (SDC) | payer MEDICAID, SELFPAY ==
[2021-10-12] VITALS (7 sets, daily range): BP systolic 81–101; BP diastolic 47–71; PULSE 56–74; RESP 16; TEMP 36.6–37.2; O2SAT 95–100; BMI 30.6
--- NOTE | 2021-10-12 | ESO_PTH ---
PATIENT: LONI MCGARRY LOC: EN U#:[id number] AGE/SX: 36/F ROOM: RE10/12/[address]: Dr. Sarthak Winter DO : 1985 BED: DIS: 10/12/2021 SPEC #: [id number] RECD: 10/12/21 12:34 STATUS: CARSON SEE #: [id number] DANI: 10/12/21 00:[address]: Sarthak Winter DEPT: SURGICAL PATHOLOGY RECD BY: Gael Carlton ENTERED: 10/12/21 12:34 SP TYPE: NGA LOPEZ DR: Dr. Aparna Segal MD Tissues: Esophagus, NOS Procedures: Special Stain Group II Surgery Specimen Level IV Alcian Blue/PAS (control) HEADER OPERATION: EGD with biopsies ([facility] [place]) PRE-OP DIAGNOSIS: Eosinophilic esophagitis, GERD TISSUE SUBMITTED: Distal esophagus biopsy MICROSCOPIC DIAGNOSIS Distal esophagus, biopsy: Gastroesophageal junctional mucosa with chronic inflammation. Consistent with reflux esophagitis. No evidence of goblet cell metaplasia. See comment. AM:dallin 10/13/2021 COMMENT Alcian blue/PAS stain with matched control supports the above diagnosis. MICROSCOPIC DESCRIPTION Slides are reviewed. GROSS DESCRIPTION Received in fixative is one container labeled with the patient's name and designated distal esophagus biopsy. The specimen consists of multiple irregular fragments of light aparicio soft tissue that in aggregate measure 1 x 0.8 x 0.1 cm. The specimen is totally submitted in one cassette. / SJ:dallin 10/12/2021 TC:3 CPT: 22428, 54060
[2021-10-12] MEDS: Lactated Ringers 1,000 ML 15 ML IV (07:48)
--- NOTE | 2021-10-12 08:39 | PCM.HP.BLA ---
History and Physical Date of Admission: 10/12/21 ?36 F who presents to the office today for Initial consult. Estelle established with this clinic 09.30.21. She was previously established with another official court reporter in [place] for GERD, EOE, esophageal stricture/Schatzki ring (dilated 2012) causing dysphagia, hiatal hernia and is seeking a second opinion. She was started on omeprazole and cimetidine. She stopped these meds when she began caring for her MIL. Stress has been increased of late with her MIL who she was providing care for and her father then suddenly passed. PCP restarted Effexor. PMH asthma, allergic rhinitis, hyperlipidemia PSH cholecystectomy; vaginal mesh. FH OH resulting in sister age 24 and father later life. [facility] ED presentation 05.10.20 for abdominal pain with emesis. She was found to have a nonobstructing 4mm right kidney stone and a new right adnexal mass that was noted to be a right ovarian hemorrhagic cyst without evidence of tortion. EGD 05.27.20 finding gastritis with hemorrhage; reactive gastropathy; active esophagitis with scattered intraepithelial eosinophils and reactive epithelial changes. Reports that she is having difficulty with food sticking when she is swallowing, she resolves this by regurgitating; denies need to Heimlich maneuver or [facility] ED presentation. Denies frequent issues with her asthma. Reflux is also an issue sometimes food triggered, sometimes present despite PO intake. Currently taking omeprazole 40mg QD which she does not feel that she is helping. ROS Const Constitutional: No anorexia, fatigue, fever(s), weight change or sleep problems Eyes Eyes: No change in vision ENT ENT: No abnormal hearing, difficulty swallowing, mouth lesions, tongue swelling or throat swelling Resp Respiratory: No cough or shortness of breath Cardio Cardiology: No chest pain at rest, chest pain with exertion, shortness of breath or dyspnea on exertion Gastro GI: No difficulty swallowing Genitourinary-Female: No difficulty urinating or burning urination Musc Musculoskeletal: No joint pain, joint swelling, muscle weakness or decreased muscle mass Skin Skin: No hair loss in leg, yellowing of the eye, itchy eyes, rash, skin ulcer or skin swelling Neuro Neurology: No abnormal hearing, abnormal movements, confusion, unsteady gait/balance or memory loss Psych Psychiatric: No anxiety, No confusion and No memory loss Endo Endocrine: No fatigue or weight change Aller/Imm Allergy/Immunologic: No itchy eyes, throat swelling or tongue swelling [place]/Lymp Hematologic/Lymphatic: No easy bleeding, easy bruising or enlarged lymph nodes Exam Const General: cooperative and comfortable Nutritional Appearance: average body habitus and well nourished [facility] Head: normal to inspection Ears: hearing grossly normal bilaterally Nose: external nose normal Face and sinus: normal facial exam Mouth: oral mucosae normal Throat: posterior oropharynx normal Eyes General: appearance normal, both eyes and all related structures Neck Neck: normal visual inspection Chest Chest palpation & inspection: normal inspection of the chest and normal palpation of entire chest wall Resp Effort & Inspection: normal respiratory effort Auscultation: Bilateral: Clear to Auscultation Cardio Palpation: normal PMI Rate: regular rate Rhythm: regular rhythm GI Inspection: normal to inspection Auscultation: normal bowel sounds Percussion: normal to percussion Palpation: no hepatosplenomegaly Skin General: no rashes or lesions noted Neuro General: patient alert Extrem General: normal to inspection Psych Affect: normal affect Quality Reporting Tobacco Screening ([facility] 138) Smoking Status: Never smoker Assessment and Plan Assessment and Plan (1) Eosinophilic esophagitis: ?Status:?Acute ?Plan: She is on PPI therapy for eosinophilic esophagitis.? I do not know if she has previously been diagnosed with PPI responsive eosinophilic esophagitis.? We will get biopsies randomly through the esophagus and the proximal, middle and distal esophagus for pathologic diagnosis.? We will keep her on PPI therapy prior to her undergoing upper endoscopy.? She may also need dilation which she is okay with.? She was explained alternatives, risk, benefits including outstanding bleeding, infection, sepsis, perforation, need for emergent .? Should have an ASA of 1. (2) GERD (gastroesophageal reflux disease): ?Status:?Acute ?Plan: The differential diagnosis for worsening gastroesophageal reflux disease could be worsening of her hiatal hernia, and decreased motility of the stomach and particularly delayed gastric emptying or accelerated gastric emptying.? We will get an upper endoscopy evaluate upper GI tract.? She will also get a gastric emptying study.? In the meantime I will put her on sulcal fate therapy to take does not think that her famotidine that she is taking at night with her PPI in the morning is helping her.? I will also give her a short course of metoclopramide. I have re-examined the patient. There are no clinical changes since date of exam.
--- NOTE | 2021-10-12 09:04 | OP.EGD_ITS ---
Patient Name: Estelle Kovacs Procedure Date: 10/12/2021 8:44 AM Date of : 1985 Age: 36 Procedure: Upper GI endoscopy Indications: Heartburn, Esophageal reflux, Failure to respond to medical treatment Providers: Sarthak Winter DO Medicines: Monitored Anesthesia Care Patient Profile: This is a 36 year old female. Refer to note in patient chart for documentation of history and physical. Patient has symptoms of acute epigastric abdominal pain, chronic heartburn and chronic nausea. Complications: No immediate complications. Procedure: Pre-Anesthesia Assessment: - Prior to the procedure, a History and Physical was performed, and patient medications and allergies were reviewed. The patient is competent. The risks and benefits of the procedure and the sedation options and risks were discussed with the patient. All questions were answered and informed consent was obtained. Patient identification and proposed procedure were verified by the physician in the pre-procedure area. Mental Status Examination: alert and oriented. Airway Examination: normal oropharyngeal airway and neck mobility. Respiratory Examination: clear to auscultation. CV Examination: normal. Prophylactic Antibiotics: The patient does not require prophylactic antibiotics. Prior Anticoagulants: The patient has taken no previous anticoagulant or antiplatelet agents. ASA Grade Assessment: II - A patient with mild systemic disease. After reviewing the risks and benefits, the patient was deemed in satisfactory condition to undergo the procedure. The anesthesia plan was to use moderate sedation / analgesia (conscious sedation). Immediately prior to administration of medications, the patient was re-assessed for adequacy to receive sedatives. The heart rate, respiratory rate, oxygen saturations, blood pressure, adequacy of pulmonary ventilation, and response to care were monitored throughout the procedure. The physical status of the patient was re-assessed after the procedure. After obtaining informed consent, the endoscope was passed under direct vision. Throughout the procedure, the patient's blood pressure, pulse, and oxygen saturations were monitored continuously. The Endoscope was introduced through the mouth, and advanced to the second part of duodenum. The upper GI endoscopy was accomplished without difficulty. The patient tolerated the procedure well. Scope In: 8:51:34 AM Scope Out: 8:56:12 AM Total Procedure Duration Time 0 hours 4 minutes 38 seconds Findings: Mucosal changes including ringed esophagus and longitudinal furrows were found in the middle third of the esophagus and in the lower third of the esophagus. Biopsies were obtained from the proximal and distal esophagus with cold forceps for histology of suspected eosinophilic esophagitis. Verification of patient identification for the specimen was done. Estimated blood loss was minimal. A non-obstructing Schatzki ring was found in the lower third of the esophagus. A medium-sized hiatal hernia was present. The cardia and gastric fundus were normal on retroflexion. The second portion of the duodenum was normal. Impression: - Esophageal mucosal changes secondary to eosinophilic esophagitis. Biopsied. - Non-obstructing Schatzki ring. - Medium-sized hiatal hernia. Recommendation: - Discharge patient to home. - Use sucralfate tablets 1 gram PO BID. - Esophageal Manometry - Follow antireflux diet until see in the clinic - Continue present medications. Procedure Code(s): --- Professional --- 02407, Esophagogastroduodenoscopy, flexible, transoral; with biopsy, single or multiple CPT copyright 2017 [employer]. All rights reserved. The codes documented in this report are preliminary and upon deputy commissioner review may be revised to meet current compliance requirements. Sarthak Winter DO 10/12/2021 9:04:03 AM This report has been signed electronically. Number of Addenda: 1 Note Initiated On: 10/12/2021 8:44 AM Addendum Number: 1 Addendum Date: 11/26/2021 6:09:40 AM MAC was used as sedation for this procedure. Sarthak Winter DO 11/26/2021 6:09:44 AM This report has been signed electronically.
--- NOTE | 2021-10-12 09:05 | OP.CCLET_ITS ---
11/26/2021 Aparna Segal [address] [id number] Re : Upper GI endoscopy procedure for Estelle Kovacs Dear Dr. Segal This procedure was performed on Tuesday, October 12, 2021. My impressions and recommendations are as follows: Impressions : - Esophageal mucosal changes secondary to eosinophilic esophagitis. Biopsied. - Non-obstructing Schatzki ring. - Medium-sized hiatal hernia. Recommendations : - Discharge patient to home. - Use sucralfate tablets 1 gram PO BID. - Esophageal Manometry - Follow antireflux diet until see in the clinic - Continue present medications. My findings are described in the full procedure note, which is enclosed. If I can be of further assistance, please feel free to contact me at . Sincerely, Sarthak Winter, 10/12/2021 9:04:03 AM This report has been signed electronically.
== END 2021-10-12 10:55 | disposition home or self-care (01) ==
LOC: EN 07:15 → AC 07:16
PROVIDERS: PCP Internal Medicine; Referring Provider Internal Medicine; Visit Provider Internal Medicine Gastroenterology
PROC: 0DJ08ZZ Inspection of Upper Intestinal Tract, Via Natural or Artificial Opening Endoscopic (ICD-10-PCS; CPT 43235; principal; 2021-10-12 08:25)
DX: K20.0 Eosinophilic esophagitis (principal); K44.9 Diaphragmatic hernia without obstruction or gangrene; K22.2 Esophageal obstruction; R13.10 Dysphagia, unspecified; F32.A Depression, unspecified; F41.9 Anxiety disorder, unspecified; Z79.899 Other long term (current) drug therapy; E78.5 Hyperlipidemia, unspecified; R06.02 Shortness of breath
CPT/HCPCS: 43239; 88305; 88313; J7120; J2405

== ENCOUNTER → 2021-11-06 | Outpatient (CLI) | payer MEDICAID, SELFPAY ==
--- NOTE | 2021-11-06 07:35 | RAD_ITS ---
STUDY: AIR CONTRAST UPPER GI SERIES and esophagram. REASON FOR EXAM: Female, 36 years old. K20.0 - Eosinophilic esophagitis FLUOROSCOPY TIME (if supplied): (96 seconds) minutes/seconds. 26 images were obtained. TECHNIQUE: SINGLE CONTRAST AND AIR CONTRAST FLUOROSCOPIC IMAGES. COMPARISON: None. FINDINGS: The cervical esophagus demonstrates normal motility without aspiration. There is no stricture or extrinsic mass effect. No intraluminal polypoid mass is identified. The patient ingested a 12 mm tablet at bedtime. Tablet is trapped at the gastroesophageal junction. The thoracic esophagus distends well without stricture or mucosal fold thickening. No mucosal ulcerations are identified. There is no extrinsic mass effect. There are no diverticula. No hiatal hernia or gastroesophageal reflux was identified. The stomach distends well without mucosal fold thickening or mucosal ulceration. There is no intraluminal mass. The duodenal bulb is freely distensible without deformity or ulceration. RAD/Upper GI w/BA Swallow IMPRESSION: The ingested 12 mm tablet of barium is trapped at the gastroesophageal junction. Electronically Signed: Julian Carter MD at 10:25 EDT ,
== END | disposition home or self-care (01) ==
LOC: RAD 07:33
PROVIDERS: PCP Internal Medicine; Referring Provider Surgery; Visit Provider Surgery
DX: K20.0 Eosinophilic esophagitis (principal); K21.9 Gastro-esophageal reflux disease without esophagitis
CPT/HCPCS: 74246

== ENCOUNTER 2021-11-13 10:16 | Day surgery (SDC) | payer MEDICAID, SELFPAY ==
[2021-11-13] MEDS: Lidocaine Jelly 2% 20 ML Syringe (URO-JET) 1 APPLIC (10:35)
[2021-11-13 10:41] VITALS: BP 104/80; PULSE 82; RESP 16; TEMP 36; O2SAT 99
== END 2021-11-13 10:54 | disposition home or self-care (01) ==
PROVIDERS: PCP Internal Medicine; Referring Provider Surgery; Visit Provider Surgery
PROC: F00ZJWZ Instrumental Swallowing and Oral Function Assessment using Swallowing Equipment (ICD-10-PCS; CPT 43235; principal; 2021-11-13 10:55)
DX: K21.9 Gastro-esophageal reflux disease without esophagitis (principal)
CPT/HCPCS: 91010

== ENCOUNTER → 2022-01-28 | Day surgery (SDC) | payer MEDICAID, SELFPAY ==
[2022-01-28 09:33] VITALS: BP 108/79; PULSE 88; RESP 18; TEMP 36.2; O2SAT 98
[2022-01-28] MEDS: Lidocaine Jelly 2% 20 ML Syringe (URO-JET) 1 APPLIC TOPICAL (09:35)
== END | disposition home or self-care (01) ==
LOC: EN 08:45
PROVIDERS: PCP Internal Medicine; Referring Provider Internal Medicine; Visit Provider Internal Medicine Gastroenterology
PROC: F00ZJWZ Instrumental Swallowing and Oral Function Assessment using Swallowing Equipment (ICD-10-PCS; CPT 43235; principal; 2022-01-28 09:25)
DX: K21.9 Gastro-esophageal reflux disease without esophagitis (principal)
CPT/HCPCS: 91010

== ENCOUNTER 2022-02-18 08:05 | Day surgery (SDC) | payer MEDICAID, SELFPAY ==
[2022-02-18] VITALS (8 sets, daily range): BP systolic 85–105; BP diastolic 51–73; PULSE 58–76; RESP 16–18; TEMP 36.1–36.4; O2SAT 94–98; BMI 30.5
--- NOTE | 2022-02-18 | IMM_PTH ---
PATIENT: LONI MCGARRY LOC: [facility] U#:[id number] AGE/SX: 37/F ROOM: RE02/18/[address]: Dr. Sarthak Winter DO : 1985 BED: DIS: 02/18/2022 SPEC #: [id number] RECD: 02/23/22 13:19 STATUS: CARSON RENayeli #: [id number] DANI: 02/18/22 00:[address]: Sarthak Winter DEPT: IMMUNOHISTOCHEMISTRY RECD BY: Clarisse Welch ENTERED: 02/23/22 13:20 SP TYPE: IMMUNO OTHR DR: Dr. Aparna Segal MD Tissues: Esophagus, NOS Procedures: P53 (initial) KI-67 (add) PHYSICIAN & [address] [id number] SPECIMEN INFORMATION: Tissue Source: Distal esophagus biopsy Clinical Info: GERD, dysphagia Specimen Number: [id number] CPT code: 80624, 229717 METHODOLOGY: Deparaffinized sections of prefer/formalin-fixed tissue or PAP/DQ stained slides are incubated with monoclonal/polyclonal antibodies/oligonucleotide probes. Localization is made via biotin free immunoperoxidase method. Appropriate controls are performed and reacted as expected. Results on target cell population are indicated in the following table: RESULTS: ANTIBODY / CLONE RESULT P53 (DO-7) negative Ki-67 (30-9) positive, low These tests were developed and their performance characteristics determined by [facility]. They may not have been cleared or approved by the U.S. Food and Drug Administration. The FDA has determined that such clearance or approval is not necessary. The above immunohistochemical/dualISH markers are ordered and reviewed by the Pathologist. INTERPRETATION: Distal esophagus, biopsy: No evidence of dysplasia. AM:dallin 02/24/2022
[2022-02-18] MEDS: Lactated Ringers 1,000 ML 15 ML IV (08:40)
--- NOTE | 2022-02-18 09:09 | PCM.HP.BLA ---
History and Physical Date of Admission: 02/18/22 ?36 F who presents to the office today for ongoing acid reflux, dysphagia, and regurgitation of food when she eats. Food can stick on the way down, no ED visits for that, she is able to cough it up. She had General Surgery consult with Dr Palma because she was interested in fundoplication for hiatal hernia; he ordered esophageal manometry but she wasn't able to tolerate the test. UGI with barium swallow showed barium tablet trapped at GE junction but no other abnormalities. 10/12/21?EGD showed medium sized hiatal hernia and esophageal mucosal changes secondary to EOE, but biopsies were negative for eosinophils; negative for Leblanc's; nonobstructive Schatzki ring. She reports hx of reflux since at least 2012, states it has never been controlled. She takes omeprazole 40 mg BID. No relief with sucralfate, metoclopramide, pancreatic enzymes. ROS Const Constitutional: No fatigue ENT ENT: No difficulty swallowing Gastro GI: No abdominal pain, belching, bloating, change in bowel habits, change in stool character, coffee ground emesis, constipation, cramping, diarrhea, heartburn, difficulty swallowing, feeling full early, excessive flatus, incontinent of stools, Vomiting blood/hematemesis, Blood in stool, loose stools, Black,tarry stools, nausea/dyspepsia, pain with swallowing, vomiting or other Musc Musculoskeletal: No joint pain Skin Skin: No yellowing of the eye or itchy eyes Psych Psychiatric: Positive for anxiety and Positive for depression Endo Endocrine: No fatigue Aller/Imm Allergy/Immunologic: No itchy eyes Francisco/Lymp Hematologic/Lymphatic: No easy bleeding or easy bruising Exam Const General: cooperative and no acute distress Nutritional Appearance: obese Orientation: alert, awake and oriented x3 Quality Reporting Tobacco Screening ([facility] 138) Smoking Status: Never smoker Assessment and Plan Assessment and Plan (1) GERD (gastroesophageal reflux disease): ?Status:?Acute ?Plan: 36 yr old female with hiatal hernia, hx EOE, acid reflux, dysphagia, regurgitation. Per her request we referred her to General Surgery for eval for fundoplication. She was unable to tolerate esophageal manometry. UGI with barium swallow showed barium tablet trapped at GE junction. Pt states plan is botox, but I discussed her case with Dr Winter--he needs esophageal manometry first in order to determine if botulinum toxin is even recommended. I discussed with pt that botox injection can worsen reflux. Continue omeprazole 40 mg bid. We will get her scheduled for manometry, with rx for anxiolytic to take before the test, she will need a emergency detail driver. She is scheduled for EGD but understands we aren't proceeding with botox unless indicated by manometry. (2) Dysphagia: ?Status:?Acute ?Plan: as above ? ? ? Medications: New lorazepam (Ativan) ?take one hour prior to procedure 1 TAB 0RF anxiety ? ? I have examined the patient and the H&P has been reviewed. There are no clinical changes since date of exam.
[2022-02-18] MEDS: Botulinum Toxin A 100 Units Vial IJ (09:30)
[2022-02-18] MEDS: 0.9% Normal Saline (Pres. free 10 ML Vial (09:30)
[2022-02-18] MEDS: 0.9% Saline Lock 10 ML Syringe IV (09:32)
--- NOTE | 2022-02-18 09:39 | OP.EGD_ITS ---
Patient Name: Estelle Kovacs Procedure Date: 02/18/2022 9:09 AM Date of : 1985 Age: 37 Procedure: Upper GI endoscopy Indications: Dysphagia, Failure to respond to medical treatment Providers: Sarthak Winter DO Referring MD: Aparna Segal Medicines: Monitored Anesthesia Care Patient Profile: This is a 37 year old female. Refer to note in patient chart for documentation of history and physical. Patient has symptoms of chronic dysphagia, dysphagia with both liquids and solids and chronic dyspepsia. Complications: No immediate complications. Procedure: Pre-Anesthesia Assessment: - Prior to the procedure, a History and Physical was performed, and patient medications and allergies were reviewed. The patient is competent. The risks and benefits of the procedure and the sedation options and risks were discussed with the patient. All questions were answered and informed consent was obtained. Patient identification and proposed procedure were verified by the physician in the pre-procedure area. Mental Status Examination: alert and oriented. Airway Examination: normal oropharyngeal airway and neck mobility. Respiratory Examination: clear to auscultation. CV Examination: normal. Prophylactic Antibiotics: The patient does not require prophylactic antibiotics. Prior Anticoagulants: The patient has taken no previous anticoagulant or antiplatelet agents. After reviewing the risks and benefits, the patient was deemed in satisfactory condition to undergo the procedure. The anesthesia plan was to use monitored anesthesia care (MAC). Immediately prior to administration of medications, the patient was re-assessed for adequacy to receive sedatives. The heart rate, respiratory rate, oxygen saturations, blood pressure, adequacy of pulmonary ventilation, and response to care were monitored throughout the procedure. The physical status of the patient was re-assessed after the procedure. After obtaining informed consent, the endoscope was passed under direct vision. Throughout the procedure, the patient's blood pressure, pulse, and oxygen saturations were monitored continuously. The gastroscope was introduced through the mouth, and advanced to the second part of duodenum. The upper GI endoscopy was accomplished without difficulty. The patient tolerated the procedure well. Scope In: 9:22:19 AM Scope Out: 9:33:18 AM Total Procedure Duration Time 0 hours 10 minutes 59 seconds Findings: LA Grade A (one or more mucosal breaks less than 5 mm, not extending between tops of 2 mucosal folds) esophagitis with no bleeding was found 36 to 37 cm from the incisors. Biopsies were taken with a cold forceps for histology. Verification of patient identification for the specimen was done. Estimated blood loss was minimal. Abnormal motility was noted in the lower third of the esophagus. The cricopharyngeus was normal. The distal esophagus/lower esophageal sphincter is patulous. Tertiary peristaltic waves are noted. Area was successfully injected with 100 units botulinum toxin. The entire examined stomach was normal. The in the duodenum was normal. Impression: - LA Grade A reflux esophagitis. Biopsied. - Abnormal esophageal motility, consistent with esophageal spasm. Injected with botulinum toxin. - Normal stomach. - Normal. Recommendation: - Discharge patient to home. - Resume previous diet. - Continue present medications. - Await pathology results. Procedure Code(s): --- Professional --- 14739, 59, Esophagogastroduodenoscopy, flexible, transoral; with directed submucosal injection(s), any substance 33395, 51, Esophagogastroduodenoscopy, flexible, transoral; with biopsy, single or multiple CPT copyright 2017 [employer]. All rights reserved. The codes documented in this report are preliminary and upon medical records coder review may be revised to meet current compliance requirements. Sarthak Winter DO 02/18/2022 9:39:05 AM This report has been signed electronically. Number of Addenda: 0 Note Initiated On: 02/18/2022 9:09 AM
--- NOTE | 2022-02-18 09:40 | OP.CCLET_ITS ---
02/18/2022 Aparna Segal [address] [place] [address] Re : Upper GI endoscopy procedure for Estelle Kovacs Dear Dr. Segal This procedure was performed on January. My impressions and recommendations are as follows: Impressions : - LA Grade A reflux esophagitis. Biopsied. - Abnormal esophageal motility, consistent with esophageal spasm. Injected with botulinum toxin. - Normal stomach. - Normal. Recommendations : - Discharge patient to home. - Resume previous diet. - Continue present medications. - Await pathology results. My findings are described in the full procedure note, which is enclosed. If I can be of further assistance, please feel free to contact me at . Sincerely, Sarthak Winter, 02/18/2022 9:39:05 AM This report has been signed electronically.
--- NOTE | 2022-02-18 09:45 | EGD_PTH ---
PATIENT: LONI MCGARRY LOC: [facility] U#:[id number] AGE/SX: 37/F ROOM: RE02/18/[address]: Dr. Sarthak Winter DO : 1985 BED: DIS: 02/18/2022 SPEC #: [id number] RECD: 02/18/22 13:18 STATUS: CARSON SEE #: [id number] DANI: 02/18/22 09:[address]: Sarthak Winter DEPT: SURGICAL PATHOLOGY RECD BY: Jaci Eduardo ENTERED: 02/19/22 09:07 SP TYPE: EGD BIOPSY OT DR: Dr. Aparna Segal MD Tissues: Esophagus, NOS Procedures: Special Stain Group II Surgery Specimen Level IV Alcian Blue/PAS (control) HEADER OPERATION: EGD ([facility]) with Botox, biopsy PRE-OP DIAGNOSIS: GERD, dysphagia TISSUE SUBMITTED: Distal esophagus biopsy MICROSCOPIC DIAGNOSIS Distal esophagus, biopsy: Fragments of gastric mucosa with mild chronic inflammation. 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 No evidence of dysplasia. See comment. AM:dallin 02/23/2022 COMMENT Alcian blue/PAS stain with matched control supports the above diagnosis. Immunohistochemistry (RF23-3) for P53 and Ki-67 will be performed and results will be reported separately. MICROSCOPIC DESCRIPTION Slides are reviewed. GROSS DESCRIPTION Received in fixative is one container labeled with the patient's name and designated distal esophagus biopsy. The specimen consists of two irregular fragments of light aparicio soft tissue that in aggregate measure 0.6 x 0.3 x 0.1 cm. The specimen is totally submitted in one cassette. / MONIQUE:dallin 02/19/2022 TC:3 CPT: 96363, 46465
== END 2022-02-18 10:53 | disposition home or self-care (01) ==
LOC: EN 08:05 → AC 08:08
PROVIDERS: PCP Internal Medicine; Referring Provider Internal Medicine; Visit Provider Internal Medicine Gastroenterology
PROC: 0DJ08ZZ Inspection of Upper Intestinal Tract, Via Natural or Artificial Opening Endoscopic (ICD-10-PCS; CPT 43235; principal; 2022-02-18 09:40)
DX: K21.00 Gastro-esophageal reflux disease with esophagitis, without bleeding (principal); K22.70 Barrett's esophagus without dysplasia; K30 Functional dyspepsia; K22.4 Dyskinesia of esophagus; E66.9 Obesity, unspecified; F41.9 Anxiety disorder, unspecified; F32.A Depression, unspecified; Z79.899 Other long term (current) drug therapy; Z68.30 Body mass index [BMI] 30.0-30.9, adult
CPT/HCPCS: 43236; 43239; 88305; 88313; 88341; 88342; J7120; A4216; J0585; J2405; J3490

== ENCOUNTER 2022-10-06 18:58 | Emergency (ER) | payer MEDICAID, SELFPAY ==
[2022-10-06 19:00] VITALS: BP 112/79; PULSE 70; RESP 18; TEMP 35.9; O2SAT 97; BMI 29.4
--- NOTE | 2022-10-06 19:31 | EKG12_ITS ---
Test Reason : Dysrhythmia Blood Pressure : / mmHG Vent. Rate : 072 BPM Atrial Rate : 072 BPM P-R Int : 146 ms QRS Dur : 068 ms QT Int : 420 ms P-R-T Axes : 047 -04 020 degrees QTc Int : 459 ms Normal sinus rhythm Low voltage QRS Borderline ECG Confirmed by DEEPA STORY ([id number]), general expeditor JOSE ALEJANDRO PEREZ ([id number]) on 10/07/2022 11:27:12 AM Referred By: Confirmed By:DEEPA STORY
--- NOTE | 2022-10-06 19:31 | EX.ED.DYSGE1 ---
HPI History of Present Illness Chief Complaint: Abn Labs Informant: patient Narrative Narrative: Patient sent in by her PCP for reevaluation and recheck labs. Patient was seen yesterday at [facility] for left-sided abdominal pain. She had a work-up initiated. CT scan and lab work. Report electrolyte abnormalities. She brought printout of records noted potassium 2.5 magnesium 1.2 had a white count of 14. Her CT scan negative for any colon abnormalities with a normal appendix. She had incidental finding of heterogeneous liver with noted concerns for sequelae of hepatic venous congestion or congestive hepatopathy with Susanna artery being a consideration. She had vomiting diarrhea yesterday that have subsided. Only mild left lower quadrant discomfort today. No fevers. PCP did draw labs today however told to come here to get reevaluated. She does follow GI has esophageal strictures 2 weeks ago EGD with dilatation. She had a omeprazole changed to pantoprazole. From records today had lab work her magnesium was 2.4 and rechecked liver enzymes ALT of 77. Normal bilirubin. No repeat renal panel. She reports did get magnesium infusion through the ER, did not get potassium replacement. 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 [facility] Medical History Alcohol use Anxiety Depression Dysphagia Eosinophilic esophagitis Esophageal stricture Esophagitis GERD (gastroesophageal reflux disease) Hiatal hernia Hyperlipidemia Non-smoker Shortness of breath on exertion Wears glasses Home Medications albuterol sulfate 90 mcg/actuation aerosol inhaler (Ventolin HFA) 2 puff inhalation Q4H PRN PRN Sob &/Or Wheezing 09/29/15 [History Last Taken Unknown] atorvastatin 40 mg tablet 40 mg PO QHS 09/29/15 [History Last Taken 10/04/17] cetirizine 10 mg capsule (Zyrtec) 10 mg PO DAILY 09/29/15 [History Last Taken 10/05/17] ergocalciferol (vitamin D2) 1,250 mcg (50,000 unit) capsule (Vitamin D2) 50,000 unit PO WESA 09/29/15 [History Last Taken 10/02/17] montelukast 10 mg tablet 10 mg PO DAILY 09/29/15 [History Last Taken 10/05/17] trazodone 50 mg tablet 100 mg PO QHS sleep 10/09/21 [History Last Taken Unknown] omeprazole 20 mg tablet,delayed release 40 mg PO BID 10/28/21 [History Last Taken Unknown] venlafaxine 75 mg tablet 150 mg PO DAILY 11/04/21 [History Last Taken Unknown] oxycodone 5 mg tablet 5 mg PO Q8H PRN pain 10/06/22 [History Last Taken Unknown] Allergy/AdvReac Type Severity Reaction Status Date / Time adhesive tape Allergy Rash Verified 10/06/22 19:00 clarithromycin [From Biaxin] Allergy Rash Verified 10/06/22 19:00 Penicillins Allergy Rash Verified 10/06/22 19:00 Poultry AdvReac Diarrhea Verified 10/06/22 19:00 Family History Mother Diabetes Hypertension Father Diabetes Heart disease Sister Heart disease Surgical History History of esophagogastroduodenoscopy (EGD) History of hysterectomy History of left knee surgery History of tonsillectomy History of tubal ligation Hx of cholecystectomy Social History Smoking Status: Never smoker alcohol intake: current ROS ROS ED Constitutional Constitutional ED: Denies chills, fever(s) or sweats Eyes Eyes: Denies change in vision ENT ENT ED: Denies dysphagia or sore throat Cardiovascular Cardiovascular: Denies chest pain, leg edema, palpitations or racing heartbeat Respiratory/Chest Respiratory/Chest: Denies cough, dyspnea or dyspnea on exertion Gastrointestinal Gastrointestinal: Reports abdominal pain; Denies diarrhea, nausea or vomiting Genitourinary Genitourinary ED: Denies dysuria, hematuria or urinary frequency Musculoskeletal Musculoskeletal: Denies back pain, extremity pain or neck pain Integumentary Denies rash or wounds Neurologic Neurologic: Denies headache(s), paresthesias or weakness EXAM Physical Exam Const Vital Signs: 10/06/22 19:00 10/06/22 21:41 10/06/22 22:12 Temperature 96.7 F L Temperature Source Temporal Pulse Rate 70 89 84 Respiratory Rate 18 18 16 Blood Pressure 112/79 120/73 Blood Pressure Mean 90 Pulse Ox 97 96 96 Oxygen Delivery Method Room Air Room Air Positive well nourished and well developed General Appearance ED: well developed and NAD HEENT Reports moist mucous membranes normocephalic and atraumatic Eyes PERRL, EOMs intact bilaterally and conjunctivae normal General Eye ED: Yes normal appearance of both eyes Neck no lymphadenopathy and supple General: Negative for tenderness Chest Wall Chest: Negative for tenderness Resp normal respiratory effort and normal air movement Effort and Inspection: symmetric chest movement; Negative for respiratory distress Cardio regular rate, regular rhythm and no murmurs Peripheral Pulses: pulses 2+ throughout GI normal to inspection, nondistended, normoactive bowel sounds GI Narrative: Minimal tenderness left lower quadrant. No guarding or rebound. Negative Pak's or McBurney's tenderness. Palpation: Negative for guarding or rebound tenderness present Back/Spine no CVA tenderness and no thoracic nor lumbar tenderness Extremity normal to inspection General Extremety ED: Negative for edema or tenderness General Extremity: Negative for edema Neuro oriented x3 and no sensory deficits noted Sensorium / Orientation: awake and alert Skin no rashes or lesions noted and no wounds MDM MDM MDM Narrative Medical decision making narrative: Interventions / MDM: Differential diagnosis: Electrolyte abnormalities Diagnosis considered but do not suspect: N/A My EKG interpretation: EKG: Sinus rate of 72, no ST changes, isolated T wave version leads III. Nonspecific. QTc 459. Imaging independently reviewed and interpreted by myself: N/A External documents reviewed: Outpatient labs with magnesium 2.4 Test considered but not ordered:N/A ED course: Patient nontoxic improving abdominal pain since yesterday. Presenting with electrolyte abnormalities from outside facility yesterday. EKG obtain nonspecific findings recheck labs White count down to 13.4, potassium was normal at 3.8 today. Normal renal function. Re-evaluation: stable, discussed findings with the patient. Electrolytes now normal, no hospitalization required. She is followed by GI for abnormal CT of liver issues. Likely further imaging as an outpatient. She will follow-up with them. All questions were answered. Disposition discussed with patient/family/significant other: Patient Case discussed with consulting clinician: N/A This note was generated with apprupt dictation software. It may contain incorrect words, spelling, and punctuation that were not noted in checking the note before signing. Lab Data Attestation: I reviewed the patient's lab results. Labs: Laboratory Results - last 24 hr 10/06/22 19:30 WBC 13.4 H RBC 4.43 Hgb 13.7 Hct 39.5 MCV 89.2 MCH 30.9 MCHC 34.7 RDW Std Deviation 40.4 RDW Coeff of Jared 12.3 Plt Count 260 MPV 11.5 Immature Gran % (Auto) 0.400 Neut % (Auto) 71.9 H Lymph % (Auto) 21.9 [place] % (Auto) 3.6 Eos % (Auto) 1.7 Baso % (Auto) 0.5 Absolute Neuts (auto) 9.7 H Absolute Lymphs (auto) 2.95 Nucleated RBC % 0 Sodium 138 Potassium 3.8 Chloride 109 H Carbon Dioxide 25.0 Anion Gap 4 L BUN 9 Creatinine 0.88 Estim Creat Clear Calc 61.65 Est GFR (MDRD) Af Amer 92 Est GFR (MDRD) Non-Af 76 BUN/Creatinine Ratio 10.3 Glucose 90 Calcium 8.7 Discharge Plan Triage Chief Complaint: Abn Labs ED Provider: [facility] Dx/Rx/DC Orders Clinical Impression: Abnormal CT of liver, Abdominal pain Instructions: Abdominal Pain Prescriptions: No Action atorvastatin 40 MG tablet 40 mg PO QHS montelukast 10 MG tablet 10 mg PO DAILY ergocalciferol (vitamin D2) [Vitamin D2] 50,000 UNIT capsule 50,000 unit PO WESA albuterol sulfate [Ventolin HFA] 1 INHALER inhaler 2 puff inhalation Q4H PRN PRN (Reason: Sob &/Or Wheezing) Zyrtec 10 MG capsule 10 mg PO DAILY trazodone 50 mg tablet 100 mg PO QHS omeprazole 20 mg tablet,delayed release (DR/EC) 40 mg PO BID venlafaxine 75 mg tablet 150 mg PO DAILY oxycodone 5 mg tablet 5 mg PO Q8H PRN (Reason: pain) Stand Alone Forms: ED Work / School Excuse Primary Care Provider: Aparna Segal Referrals: Aparna Segal MD [Primary Care Provider] - Activity Restrictions/Additional Instructions: Your blood test sent 3.8 your magnesium 2.4 rechecked earlier. These are normal compared to yesterday. He had a CT scan yesterday with abnormal liver structures which can be evaluated by your GI team. Follow-up with them. Continue oral fluids. Disposition Disposition: Home, Self Care Discharge Date/Time: 10/06/22 22:13
[2022-10-06 19:51] LABS: Absolute Lymphocyte Count 2.95 X10^3/uL (0.83-4.51); Absolute Neutrophil Count 9.7 X10^3/uL (2.0-7.7); Basophil# 0.07 X10^3/uL; Basophil% 0.5 % (0-1); Eosinophil# 0.23 X10^3/uL; Eosinophils% 1.7 % (0-5); Hematocrit 39.5 % (37-47); Hemoglobin 13.7 g/dL (12.0-15.0); Lymphocyte # 2.95 X10^3/ul (0.83-4.51); Lymphocyte % 21.9 % (19-41); Mean Corp Hgb Conc 34.7 g/dL (32-36); Mean Corpuscular Hgb 30.9 pg (27.0-32.0); Mean Corpuscular Volume 89.2 fL (81-99); Mean Platelet Vol. 11.5 fl (6.2-12.0); Monocyte# 0.48 X10^3/uL; Monocyte% 3.6 % (0-10); NRBC Flagged by Analyzer 0 % (0-5); Neutrophil # 9.66 X10^3/uL (2.7-7.7); Neutrophil % 71.9 % (47-70); Platelet Count 260 K/mm3 (150-450); RBC Distribution Width CV 12.3 % (11.6-14.6); RBC Distribution Width SD 40.4 fl (35.1-43.9); Red Blood Count 4.43 M/mm3 (4.2-5.4); White Blood Count 13.4 K/mm3 (4.4-11.0)
[2022-10-06 20:34] LABS: Anion Gap 4 (5-15); BUN 9 mg/dL (7-18); BUN/Creat Ratio 10.3 RATIO (10-20); Calcium,Total 8.7 mg/dL (8.5-10.1); Chloride 109 mmol/L (98-107); Creatinine, Serum 0.88 mg/dL (0.55-1.02); EST Glomerular Filtration Rate 76 mL/min (>60); Est Glom Filt Rate - Afr Amer 92 mL/min (>60); Estimated Creatinine Clearance 61.65 ml/min; Glucose 90 mg/dL (74-106); Potassium 3.8 mmol/L (3.5-5.1); Sodium Level 138 mmol/L (136-145)
[2022-10-06 21:41] VITALS: PULSE 89; RESP 18; O2SAT 96
[2022-10-06 22:12] VITALS: BP 120/73; PULSE 84; RESP 16; O2SAT 96
== END 2022-10-06 22:13 | disposition home or self-care (01) ==
PROVIDERS: Emergency Provider Emergency Medicine; PCP Internal Medicine; Visit Provider Emergency Medicine
DX: R10.9 Unspecified abdominal pain (principal); E78.5 Hyperlipidemia, unspecified; K21.00 Gastro-esophageal reflux disease with esophagitis, without bleeding; R11.2 Nausea with vomiting, unspecified; E83.42 Hypomagnesemia; E87.8 Other disorders of electrolyte and fluid balance, not elsewhere classified
CPT/HCPCS: 80048; 80076; 83735; 85025; 93005; 99283; A4216

== ENCOUNTER → 2022-10-06 | Outpatient (CLI) | payer MEDICAID, SELFPAY ==
[2022-10-06 15:52] LABS: AST(SGOT) 36 U/L (15-37); Alanine Aminotransfer ALT/SGPT 77 U/L (13-56); Albumin, Serum 3.7 g/dL (3.2-5.0); Alkaline Phosphatase 89 U/L (45-117); Bilirubin, Direct 0.12 mg/dL (0.00-0.30); Globulin 3.8 g/dL (2.2-4.2); Magnesium 2.4 mg/dL (1.6-2.6); Protein, Total 7.5 g/dL (6.4-8.2)
== END | disposition home or self-care (01) ==
LOC: LABSPEC 15:23
PROVIDERS: PCP Internal Medicine; Referring Provider Internal Medicine; Visit Provider Internal Medicine
DX: R11.2 Nausea with vomiting, unspecified (principal); R93.2 Abnormal findings on diagnostic imaging of liver and biliary tract; E83.42 Hypomagnesemia
CPT/HCPCS: 80076; 83735